=== PATIENT | female | born 2000 | race Caucasian/White ===

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

== ENCOUNTER 2018-10-09 21:14 | Emergency (ER) | payer OTHER ==
[~2018-10-09] VITALS: Ht 157.5 cm; Wt 72.7 kg
[2018-10-09 21:19] VITALS: BP 132/76; PULSE 89; RESP 18; Ht 157.5 cm; Wt 72.7 kg
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
== END 2018-10-09 21:32 ==
LOC: E/R 21:14
DX: Z02.89 Encounter for other administrative examinations (principal)
CPT/HCPCS: 99283